=== PATIENT | male | born 1960 | race Caucasian/White ===

== ENCOUNTER 2018-04-21 13:14 | Emergency (ER) | payer OTHER ==
[~2018-04-21] VITALS: Ht 177.8 cm; Wt 84.1 kg
[2018-04-21] MEDS ORDERED: ATORVASTATIN CA80 MG PO (13:52)
[2018-04-21] MEDS ORDERED: ZETIA10 MG PO (13:52)
[2018-04-21] MEDS ORDERED: MESALAMINE DR1.2 GM PO (13:53)
[2018-04-21] MEDS ORDERED: BENAZEPRIL HCL20 MG PO (13:53)
[2018-04-21] MEDS ORDERED: AZELASTINE HCL0.05 % OU (14:04)
[2018-04-21 14:12] VITALS: BP 140/84
== END 2018-04-21 14:12 | disposition home or self-care (01) | DRG 125 ==
LOC: ED 13:14
DX: H10.13 Acute atopic conjunctivitis, bilateral (principal); F17.210 Nicotine dependence, cigarettes, uncomplicated